=== PATIENT | female | born 1975 | race Caucasian/White ===

== ENCOUNTER → 2017-07-16 | Outpatient (CLI) | payer OTHER, MEDICAID | LOC: M.RAD 11:14 | DX: M19.012 Primary osteoarthritis, left shoulder (principal) ==

== ENCOUNTER → 2017-07-29 | Outpatient (CLI) | payer OTHER, MEDICAID | LOC: M.MRI 13:00 | DX: M19.012 Primary osteoarthritis, left shoulder (principal); M75.92 Shoulder lesion, unspecified, left shoulder ==

== ENCOUNTER → 2017-11-24 | Outpatient (CLI) | payer OTHER, MEDICAID | LOC: M.RAD 12:39 | DX: Z12.31 Encounter for screening mammogram for malignant neoplasm of breast (principal) ==

== ENCOUNTER → 2018-12-20 | Outpatient (CLI) | payer OTHER, MEDICAID | LOC: M.RAD 11:14 | DX: Z12.31 Encounter for screening mammogram for malignant neoplasm of breast (principal); M79.671 Pain in right foot ==

== ENCOUNTER → 2018-12-29 | Outpatient (CLI) | payer OTHER, MEDICAID | LOC: M.ULTRA 12-28 13:00 | DX: N63.20 Unspecified lump in the left breast, unspecified quadrant (principal) ==

== ENCOUNTER → 2020-11-20 | Outpatient (CLI) | payer OTHER, MEDICAID ==
--- NOTE | 2020-11-20 12:18 | 2DMMODE ---
[place] [address] 2 D/M-MODE ECHOCARDIOGRAM Name: GIORGIO CROFT Glenn Room: [facility]#: [id number] Admission: 11/20/20 Attend Phys: Joseph Grimm MD Discharge: Date of : 71 Date of Service: 11/20/20 1217 Report #: [id number] THIS REPORT FOR: cc: Aracely De Los Santos Mischelle RNP Liston, Michael J. MD [facility] ~ APPROVED REPORT Study performed: 11/20/2020 10:38:37 EXAM: Comprehensive 2D, Doppler, and color-flow Echocardiogram Patient Location: Out-Patient BSA: 2.07 HR: 74 bpm BP: 130/72 mmHg Other Information Study Quality: Good Indications Peripheral Edema Hypertension/HDD 2D Dimensions IVSd: 9.75 (7-11mm) LVOT Diam: 20.01 (18-24mm) LVDd: 42.29 mm PWd: 8.73 (7-11mm) Ascending Ao: 27.14 (22-36mm) LVDs: 27.85 (25-40mm) Aortic Root: 25.27 mm Volumes Left Atrial Volume (Systole) LA ESV Index: 15.20 mL/m2 Aortic Valve AoV Peak Sky.: 1.46 m/s AO Peak Gr.: 8.53 mmHg LVOT Max P.59 mmHg AO Mean Gr.: 4.30 mmHg LVOT Mean P.86 mmHg LVOT Max V: 1.28 m/s AO V2 VTI: 28.04 cm LVOT Mean V: 0.77 m/s DANILO (VTI): 2.83 cm2 LVOT V1 VTI: 25.22 [place] [address] 2 D/M-MODE ECHOCARDIOGRAM Name: GIORGIO CROFT Room: [facility]#: [id number] Admission: 11/20/20 Attend Phys: Joseph Grimm MD Discharge: Date of : 71 Date of Service: 11/20/20 1217 Report #: [id number] E/A Ratio: 1.12 MV Decel. Time: 194.76 ms MV E Max Sky.: 1.00 m/s MV PHT: 56.48 ms MVA (PHT): 3.90 cm2 TDI E/Lateral E': 7.14 E/Medial E': 7.69 Medial E' Sky.: 0.13 m/s Lateral E' Sky.: 0.14 m/s Pulmonary Valve PV Peak Sky.: 0.89 m/s PV Peak Gr.: 3.14 mmHg Tricuspid Valve RAP Estimate: 5.00 mmHg TR Peak Gr.: 19.15 mmHg RVSP: 24.15 mmHg PA Pressure: 24.15 mmHg Left Ventricle The left ventricle is normal size. There is normal LV segmental wall motion. There is normal left ventricular wall thickness. Left ventricular systolic function is normal. LVEF is 60-65%. The left ventricular diastolic function is normal. Right Ventricle The right ventricle is normal size. The right ventricular systolic function is normal. Atria The left atrium size is normal. The right atrium size is normal. Aortic Valve The aortic valve is normal in structure. No aortic regurgitation is present. There is no aortic valvular stenosis. Mitral Valve The mitral valve is normal in structure. Trace mitral regurgitation. No evidence of mitral valve stenosis. Tricuspid Valve The tricuspid valve is normal in structure. Trace tricuspid regurgitation. The RVSP is 24 [place] [address] 2 D/M-MODE ECHOCARDIOGRAM Name: GIORGIO CROFT Room: [facility]#: [id number] Admission: 11/20/20 Attend Phys: Joseph Grimm MD Discharge: Date of : 71 Date of Service: 11/20/20 1217 Report #: [id number] The pulmonary valve is normal in structure. There is no pulmonic valvular regurgitation. Great Vessels The aortic root is normal in size. IVC is normal in size and collapses >50% with inspiration. Pericardium There is no pericardial effusion. <Conclusion> The left ventricle is normal size. There is normal left ventricular wall thickness. Left ventricular systolic function is normal. LVEF is 60-65%. The left ventricular diastolic function is normal. There is normal LV segmental wall motion. Trace mitral regurgitation. Trace tricuspid regurgitation. The RVSP is 24 mmHg. IVC is normal in size and collapses >50% with inspiration. <ELECTRONICALLY SIGNED> By: Garland Ayala MD, FACC 11/20/201216 16 16 Garland Ayala MD, FACC /INF
== END ==
LOC: M.CRD 10:50
PROVIDERS: ATTEND Internal Medicine Cardiovascular Disease
DX: R60.1 Generalized edema (principal)

== ENCOUNTER → 2020-11-20 | Outpatient (CLI) | payer OTHER | LOC: M.CT 10:52 | PROVIDERS: ATTEND Internal Medicine Cardiovascular Disease | DX: Z13.6 Encounter for screening for cardiovascular disorders (principal) ==

== ENCOUNTER → 2020-12-17 | Outpatient (CLI) | payer OTHER, MEDICAID ==
[2020-12-17 09:46] LABS: CHOLESTEROL 151 mg/dL (<200); HDL CHOLESTEROL 48 mg/dL (>40); LDL CHOLESTEROL 90 mg/dL (<100); SERUM ASSESSMENT Clear; TC:HDL 3.1 Ratio (Not establshd); TRIGLYCERIDE 67 mg/dL (<150); VLDL 13 mg/dL (<40)
== END ==
LOC: M.LAB 09:13
PROVIDERS: ATTEND Internal Medicine Cardiovascular Disease
DX: E78.5 Hyperlipidemia, unspecified (principal)